=== PATIENT | female | born 1995 | race Caucasian/White ===

== ENCOUNTER → 2023-02-27 | Outpatient (CLI) | payer OTHER, SELFPAY ==
[2023-02-27 12:49] LABS: Absolute Lymphocyte Count 1.95 X10^3/uL (0.83-4.51); Absolute Neutrophil Count 4.8 X10^3/uL (2.0-7.7); Basophil# 0.01 X10^3/uL; Basophil% 0.1 % (0-1); Eosinophil# 0.13 X10^3/uL; Eosinophils% 1.8 % (0-5); Hematocrit 39.6 % (37-47); Hemoglobin 13.4 g/dL (12.0-15.0); Lymphocyte # 1.95 X10^3/ul (0.83-4.51); Lymphocyte % 26.7 % (19-41); Mean Corp Hgb Conc 33.8 g/dL (32-36); Mean Corpuscular Hgb 29.1 pg (27.0-32.0); Mean Corpuscular Volume 86.1 fL (81-99); Monocyte# 0.44 X10^3/uL; NRBC Flagged by Analyzer 0 % (0-5); Neutrophil # 4.75 X10^3/uL (2.7-7.7); Neutrophil % 65.1 % (47-70); Platelet Count 265 K/mm3 (150-450); RBC Distribution Width CV 12.6 % (11.6-14.6); RBC Distribution Width SD 39.2 fl (35.1-43.9); White Blood Count 7.3 K/mm3 (4.4-11.0)
[2023-02-27 13:20] LABS: Anion Gap 11 (5-15); BUN 7 mg/dL (7-18); Calcium,Total 8.8 mg/dL (8.5-10.1); Chloride 105 mmol/L (98-107); Creatinine, Serum 0.54 mg/dL (0.55-1.02); EST Glomerular Filtration Rate 144 mL/min (>60); Est Glom Filt Rate - Afr Amer 174 mL/min (>60); Glucose 81 mg/dL (74-106); Potassium 3.7 mmol/L (3.5-5.1); Sodium Level 139 mmol/L (136-145)
[2023-02-27 13:53] LABS: HIV - WCH Non-Reactive (Nonreactive); Hepatitis B Surface Antigen Non-Reactive (Nonreactive); Hepatitis C Antibody Non-Reactive (Nonreactive); Rubella IgG Reactive (Nonreactive); Syphilis Antibodies Non-reactive
[2023-03-02 06:08] LABS: Chlamydia By Nucleic Acid AMP Negative (Negative); Gonococcus By Nucleic Acid AMP Negative (Negative)
== END | disposition home or self-care (01) ==
PROVIDERS: Visit Provider Registered Nurse
DX: Z34.90 Encounter for supervision of normal pregnancy, unspecified, unspecified trimester (principal); Z3A.00 Weeks of gestation of pregnancy not specified
CPT/HCPCS: 36415; 80048; 85025; 86703; 86762; 86780; 86803; 86850; 86900; 86901; 87086; 87340; 87491; 87591

== ENCOUNTER → 2023-05-23 | Outpatient (CLI) | payer BC, SELFPAY ==
[2023-05-23 14:10] LABS: Absolute Lymphocyte Count 1.78 X10^3/uL (0.83-4.51); Absolute Neutrophil Count 8.4 X10^3/uL (2.0-7.7); Basophil# 0.01 X10^3/uL; Basophil% 0.1 % (0-1); Eosinophil# 0.17 X10^3/uL; Eosinophils% 1.6 % (0-5); Lymphocyte # 1.78 X10^3/ul (0.83-4.51); Lymphocyte % 16.6 % (19-41); Mean Corp Hgb Conc 33.3 g/dL (32-36); Mean Corpuscular Hgb 28.5 pg (27.0-32.0); Mean Corpuscular Volume 85.4 fL (81-99); Mean Platelet Vol. 10.7 fl (6.2-12.0); Monocyte# 0.35 X10^3/uL; Monocyte% 3.3 % (0-10); NRBC Flagged by Analyzer 0 % (0-5); Neutrophil # 8.39 X10^3/uL (2.7-7.7); Platelet Count 271 K/mm3 (150-450); RBC Distribution Width CV 13.1 % (11.6-14.6); RBC Distribution Width SD 40.1 fl (35.1-43.9); Red Blood Count 3.16 M/mm3 (4.2-5.4); White Blood Count 10.7 K/mm3 (4.4-11.0)
[2023-05-23 14:34] LABS: Prothrombin Time (Protime)PT. 13.3 SECONDS (11.7-14.9)
[2023-05-23 14:35] LABS: Fibrinogen 469 mg/dl (203-444)
[2023-05-23 19:18] LABS: Absolute Lymphocyte Count 2.13 X10^3/uL (0.83-4.51); Basophil# 0.02 X10^3/uL; Basophil% 0.2 % (0-1); Eosinophil# 0.19 X10^3/uL; Eosinophils% 1.7 % (0-5); Hematocrit 29.8 % (37-47); Hemoglobin 9.5 g/dL (12.0-15.0); Lymphocyte # 2.13 X10^3/ul (0.83-4.51); Lymphocyte % 19.5 % (19-41); Mean Corp Hgb Conc 31.9 g/dL (32-36); Mean Corpuscular Volume 87.9 fL (81-99); Mean Platelet Vol. 10.5 fl (6.2-12.0); Monocyte# 0.48 X10^3/uL; Monocyte% 4.4 % (0-10); NRBC Flagged by Analyzer 0 % (0-5); Neutrophil # 8.04 X10^3/uL (2.7-7.7); Neutrophil % 73.8 % (47-70); Platelet Count 274 K/mm3 (150-450); RBC Distribution Width CV 13.1 % (11.6-14.6); RBC Distribution Width SD 41.5 fl (35.1-43.9); Red Blood Count 3.39 M/mm3 (4.2-5.4); White Blood Count 10.9 K/mm3 (4.4-11.0)
--- OUTSIDE RECORDS SUMMARY | 2023-05-23 21:06 | XMS RPT_ITS | CCD ---
Author Name Unknown Address [address] [place] [address] Organization [facility] Care Team Providers Care Die Setter Name Role Phone Unavailable Primary Care Provider Vianey Denney, Physician Primary Care Provider UnavailGIUSEPPE Cook Attending Unavailable GIUSEPPE HAIR Referring Unavailable GIUSEPPE HAIR Admitting Unavailable GIUSEPPE HAIR Attending Unavailable ANY, PHYSICIAN Primary Care Unavailable GIUSEPPE HAIR Attending Unavailable Unavailable Primary Care Provider WERO Decker Referring Unavailable WERO SOLIS Attending Unavailable Allergies Allergy Classification Reported Allergen(s) Allergy Type Date of Onset Reaction(s) Facility (5 sources) Kiwi; Translations: [KIWI] Propensity to adverse reactions to drug 06-15-2022 Anaphylaxis [facility] Medications Current Medications Medication Drug Class(es) Dates Sig (Normalized) Sig (Original) drospirenone / Ethinyl Estradiol (3 sources) Progestin, Estrogen Start: 06-21-2022 End: 09-21-2022 take 1 tablet by mouth once daily, then take 3 tablets by mouth once drospirenone-ethiny l estradioL (TATA) 3-0.03 mg per tablet Indications: Encounter for initial prescription of contraceptive pills Take 1 (one) tablet by mouth daily . 90 tablet 3 06/21/2022 09/21/2022 Discontinued Problems Active Problems Problem Classification Problem Date Documented Da te Episodic/Chronic Hemorrhage during ; abruptio placenta; placenta previa (6 sources) Threatened miscarriage; Translations: [Threatened ] Onset: 03-03-2023 03-03-2023 Episodic Menstrual disorders (3 sources) Menometrorrhagia; Translations: [Excessive and frequent menstruation with irregular cycle] Onset: 09-20-2022 09-20-2022 Chronic Other female genital disorders (1 source) Abnormal uterine bleeding; Translations: [Abnormal uterine and vaginal bleeding, unspecified] 06-15-2022 Chronic Other female genital disorders (2 sources) Abnormal uterine and vaginal bleeding, unspecified; Translations: [Abnormal uterine and vaginal bleeding, unspecified] Onset: 06-19-2022 Chronic Past or Other Problems Problem Classification Problem Date Documented Date Episodic/Chronic Contraceptive and procreative management (4 sources) Patient encounter status; Translations: [Encounter for initial prescription of contraceptive pills] Onset: 06-21-2022 06-21-2022 Episodic Other screening for suspected conditions (not mental disorders or infectious disease) (4 sources) Cancer cervix screening status; Translations: [Encounter for screening for malignant neoplasm of cervix] Onset: 06-21-2022 06-21-2022 Episodic Results Test Name Value Interpretation Reference Range Facil ity Vital Signs Date Time Vital Sign Value Performing Clinician Facility 03-03-2023 19:13-0500 Diastolic blood pressure 84 mm[Hg] [facility] 03-03-2023 19:13-0500 Heart rate 80 /[facility]-03-2023 19:13-0500 Respiratory rate 16 /[facility] 03-03-2023 19:13-0500 SaO2% (BldA) [Mass fraction] 98 % [facility] 03-03-2023 19:13-0500 Systolic blood pressure 135 mm[Hg] [facility] 03-03-2023 15:38-0500 Body weight 99.[address] [facility] 03-03-2023 15:37-0500 Body temperature 99.3 [facility]degF[facility] 09-20-2022 14:25-0400 Body height 172.7 cm Giuseppe Hair CNP Work Phone: [facility] 09-20-2022 14:25-0400 Body mass index (BMI) [Ratio] 33.3 kg/m2 Giuseppe Hair CNP Work Phone: [facility] 09-20-2022 14:25-0400 Body weight 99.34 kg Giuseppe aHir CNP Work Phone: [facility] 09-20-2022 14:25-0400 Diastolic blood pressure 76 mm[Hg] Giuseppe Hair CNP Work Phone: [facility] 09-20-2022 14:25-0400 Heart rate 84 /min Giuseppe Sprang DEVELOPMENT ARCHITECT Work Phone: [facility] 09-20-2022 14:25-0400 Systolic blood pressure 115 mm[Hg] Giuseppe Sprang DEVELOPMENT ARCHITECT Work Phone: [facility] 06-21-2022 14:36-0400 Body height 172.7 cm Giuseppe Sprang DEVELOPMENT ARCHITECT Work Phone: [facility] 06-21-2022 14:36-0400 Body mass index (BMI) [Ratio] 33.6 kg/m2 Giuseppe Sprang DEVELOPMENT ARCHITECT Work Phone: [facility] 06-21-2022 14:36-0400 Body weight 100.25 kg Giuseppe Sprang DEVELOPMENT ARCHITECT Work Phone: [facility] 06-21-2022 14:36-0400 Diastolic blood pressure 81 mm[Hg] Giuseppe Sprang DEVELOPMENT ARCHITECT Work Phone: [facility] 06-21-2022 14:36-0400 Heart rate 88 /min Giuseppe Sprang DEVELOPMENT ARCHITECT Work Phone: [facility] 06-21-2022 14:36-0400 Systolic blood pressure 117 mm[Hg] Giuseppe Sprang DEVELOPMENT ARCHITECT Work Phone: [facility] 06-15-2022 08:43-0400 Body height 173 cm Giuseppe Sprang DEVELOPMENT ARCHITECT Work Phone: [facility] 06-15-2022 08:43-0400 Body mass index (BMI) [Ratio] 33.28 kg/m2 Giuseppe Sprang DEVELOPMENT ARCHITECT Work Phone: [facility] 06-15-2022 08:43-0400 Body weight 99.61 kg Giuseppe Sprang DEVELOPMENT ARCHITECT Work Phone: [facility] 06-15-2022 08:43-0400 Diastolic blood pressure 85 mm[Hg] Giuseppe Sprang DEVELOPMENT ARCHITECT Work Phone: [facility] 06-15-2022 08:43-0400 Heart rate 94 /min Giuseppe Sprang DEVELOPMENT ARCHITECT Work Phone: [facility] 06-15-2022 08:43-0400 Systolic blood pressure 130 mm[Hg] Giuseppe Chavezlinh PEDRAZA Work Phone: [facility] Encounters Encounter Date Encounter Type Care Provider Facility Start: 05-02-2023 End: 05-02-2023 ambulatory WERO [facility] Start: 03-03-2023 End: 03-03-2023 Emergency department patient visit [facility] Start: 03-03-2023 End: 03-03-2023 Emergency department patient visit [facility] Emergency Department Start: 09-20-2022 End: 09-20-2022 ambulatory PHYSICIAN NO [facility] Start: 09-20-2022 End: 09-20-2022 Office outpatient visit 15 minutes Giuseppelakeisha Merino Minh PEDRAZA Work Phone: [facility] Obstetrics and Gynecology Procedures Date Procedure Procedure Detail Performing Clinician Start: 03-03-2023 Blood typing serologic abo [facility] Gaxiola Work Phone: Start: 03-03-2023 Complete blood count with white cell differential, automated [facility] Gaxiola Work Phone: Start: 03-03-20[address] Gonad[address]in [address] ic quantitative [facility]-L[facility] Gaxiola Work Phone: Start: 03-03-2023 Us preg uterus real time w/image dcmtn transvag [facility] Work Phone: Start: 03-03-2023 Culture bacterial quanttative colony count urine [facility] Work Phone: Start: 03-03-2023 Urinalysis, reagent strip without microscopy [facility] Work Phone: Start: 06-21-2022 Microscopic observat ion [Identifier] in Cervix by Cyto stain Giuseppe Hair CNP Work Phone: Plan of Treatment Date Care Activity Detail Author Start: 06-21-2025 Screening for malignant neoplasm of cervix Pap Smear [facility] Start: 06-22-2023 History and physical examination, annual for health maintenance Wellness Visit [facility] Start: 03-21-2023 End: 03-21-2023 Patient encounter procedure 03/21/2023 1:00 PM EST Office Visit [facility] Obstetrics and Gynecology [address] [place], [place] [phone] Giuseppe Hair, DEVELOPMENT ARCHITECT [address] [place] [id number] [facility] Start: 11-09-2022 Influenza vaccination [facility] Start: 09-20-2022 End: 09-20-2022 Patient encounter procedure 09/20/2022 2:30 PM EDT Office Visit [facility] Obstetrics and Gynecology [address] [place] [phone] Giuseppe Hair, DEVELOPMENT ARCHITECT [address] [place] [id number] [facility] Start: 06-21-2022 End: 06-21-2022 Patient encounter procedure 06/21/2022 2:30 PM EDT Office Visit [facility] Obstetrics and Gynecology [address] [place] [phone] Giuseppe Hair, DEVELOPMENT ARCHITECT [address] [place] [id number] [facility] Start: 06-19-2022 End: 06-19-2022 Professional / ancillary services management 06/19/2022 2:30 PM EDT Ancillary Procedure [facility] [address] [place] [phone] Giuseppe Hair, DEVELOPMENT ARCHITECT [address] [place] [id number] [facility] Start: 12-07-2016 Screening for malignant neoplasm of cervix CERVICAL CANCER SCREENING DISCUSSION [facility] Start: 12-07-2014 Third diphtheria, tetanus and acellular pertussis (DTaP) vaccination TDAP (ADULT) [facility] Start: 12-07-2013 Hepatitis C screening Hepatitis C Screening [facility] Start: 12-07-2010 HIV screening [facility] Start: 2007 Depression screening using PHQ-9 (Patient Health Questionnaire 9) score Depression Screening (PHQ-2/9) [facility] Start: 12-07-1998 History and physical examination, annual for health maintenance Wellness Visit [facility] Start: 06-06-1996 COVID-19 Vaccine (#1) COVID-19 Vaccine (#1) [facility] Start: 1995 Hepatitis B vaccination HEP B VACCINE (1 of 3 - 3-dose series) [facility] Start: 1995 Hepatitis C screening HEPATITIS C VIRUS SCREENING [facility] Start: 1995 Screening for malignant neoplasm of cervix Pap Smear [facility] Start: 1995 Tetanus vaccination [facility] Bacteria identified in Urine by Culture URINE CULTURE Microbiology Routine 03/03/2023 4:06 PM EST [facility] End: 06-22-2023 Microscopic examination of vaginal Papanicolaou smear Thinprep Pap Smear Pathology and Cytology Routine Encounter for gynecological examination without abnormal finding Screening for malignant neoplasm of cervix 1 Occurrences starting 06/21/2022 until 06/22/2023 [facility] Work Phone: Payers Date Payer Category Payer Private Health Insurance [id number] 2022 Private Health Insurance [id number] 1995 Unknown [id number] [id number] 1995 Unknown [id number] [id number]. [id number] 1995 Unknown [id number] [id number]. [id number] 1995 Unknown [id number] [id number]. [id number] 1995 Unknown [id number] 1995 Unknown [id number] [id number]. [id number] Unknown [id number] Social History Date Type Detail Facility Start: 06-15-2022 End: 03-03-2023 Tobacco smoking status NHIS Never smoked tobacco [facility] Start: 06-15-2022 End: 03-03-2023 Tobacco use and exposure Smokeless tobacco non-user [facility] Start: 06-15-2022 End: 09-20-2022 Alcohol intake Current drinker of alcohol (finding) [facility] Start: 06-15-2022 End: 03-03-2023 History of Social function [facility] Start: 06-15-2022 End: 03-03-2023 Tobacco use panel [facility] Start: 06-15-2022 Alcohol Comment social [facility] Start: 1995 Sex Assigned At Not on file [facility] Start: 06-05-2022 End: 06-18-2022 Exposure to SARS-CoV-2 (event) Not sure [facility] Start: 03-03-2023 Alcohol intake Lifetime non-d skyler (finding) [facility] NEGATED: Highlighted rowStart: NINF History of tobacco use Passive smoker [facility] Clinical Notes 06-15-2022 to 03-03-2023 Discharge InstructionsAttachmentsSpGiuseppe arriaga CNP - 09/20/2022 2:36 PM EDTPattalice Hair CNP - 06/21/2022 2:52 PM EDTPattalice Hair CNP - 06/15/2022 8:40 AM EDT Note Date & Type Note Facility 03-03-2023 Note PROCEDURE: US OB TRANSVAGINAL/CERVICAL LENGTH, 03/03/2023 4:18 PM EST CLINICAL INDICATIONS: Vaginal bleeding in , first trimester 3 para 3 LMP 12/21/2022 Expected gestational age by LMP: 10 weeks 2 days Expected JANIE by LMP: 09/27/2023 COMPARISON: 06/19/2022 TECHNIQUE: Transvaginal first trimester obstetric sonogram, grayscale, color evaluation. FINDINGS: A single living intrauterine is identified. Intrauterine gestational sac, normal yolk sac, embryonic pole is seen. Cardiac activity is noted. Mean gestational sac size: 4.02 cm Embryonic crown-rump length: 3.0 cm Sonographic gestational age: 9 weeks 4 days +/- 5 days Sonographic JANIE: 10/02/2023 There are 2 complex areas of perigestational hemorrhage identified measuring up to; 4.0 x 1.8 x 1.1 cm. Superior to the gestational sac 4.6 x 1.6 x 2.6 cm superior to the gestational sac Maternal right ovary: 3.8 x 1.2 x 2.3 cm, volume 5 mL. Subcentimeter follicle seen, normal sonographic morphology. Maternal left ovary: 3.6 x 2.2 x 2.7 cm, volume 11 mL. A thick-walled 2.0 x 1.5 x 1.8 cm maternal left ovarian corpus luteal cyst is favored. IMPRESSION: 1. Single living intrauterine , 9 weeks 4 days +/- 5 days 2. Sonographic JANIE 10/02/2023 3. 2 areas of perigestational hemorrhage along the superior aspect of the gestational sac measuring up to 4.0 and 4.6 cm respectively. These are likely moderate in size. 4. Normal maternal right ovarian sonographic morphology 5. 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 [facility] 03-03-2023 Hospital Discharg e instructions Rachna Smith PA-C - 03/03/2023 6:35 PM EST Please contact your OB doctor as soon as possible to discuss this with them. Please return to the emergency room immediately if you feel that your pain or bleeding is getting worse or you are feeling lightheaded dizzy or any other concerns The following attachments cannot be sent through Care Everywhere.: Vaginal Bleeding ([place])Miscarriage: Threatened ([place] Citizen)documented in this encounter [facility] 03-03-2023 Note PROCEDURE: US OB TRANSVAGINAL/CERVICAL LENGTH, 03/03/2023 4:18 PM EST CLINICAL INDICATIONS: Vaginal bleeding in , first trimester 3 para 3 LMP 12/21/2022 Expected gestational age by LMP: 10 weeks 2 days Expected JANIE by LMP: 09/27/2023 COMPARISON: 06/19/2022 TECHNIQUE: Transvaginal first trimester obstetric sonogram, grayscale, color evaluation. FINDINGS: A single living intrauterine is identified. Intrauterine gestational sac, normal yolk sac, embryonic pole is seen. Cardiac activity is noted. Mean gestational sac size: 4.02 cm Embryonic crown-rump length: 3.0 cm Sonographic gestational age: 9 weeks 4 days +/- 5 days Sonographic JANIE: 10/02/2023 There are 2 complex areas of perigestational hemorrhage identified measuring up to; 4.0 x 1.8 x 1.1 cm. Superior to the gestational sac 4.6 x 1.6 x 2.6 cm superior to the gestational sac Maternal right ovary: 3.8 x 1.2 x 2.3 cm, volume 5 mL. Subcentimeter follicle seen, normal sonographic morphology. Maternal left ovary: 3.6 x 2.2 x 2.7 cm, volume 11 mL. A thick-walled 2.0 x 1.5 x 1.8 cm maternal left ovarian corpus luteal cyst is favored. RADIOLOGY 09-20-2022 History of Presen t illness Narrative Subjective Patient ID: Anny Hess is a 26 y.o. female. Chief Complaint Patient presents with Contraception 3 month f/u OCP, pt states she decided to not take control and doesn't want to be on any hormonal BC, does c/o heavy periods and would like to discuss a natural way to help the heavy bleeding HPI HPI Presents for follow up to menorrhagia and irregular menses Report after last visit 06/2022 she stopped aygestin daily pills and decided not to start progestin only BCP's She is using natural family planning and desires to not take any hormonal contraception currently Since off progestin her menses have returned and are heavy and irregular over last 3 months Menstrual cycles closer together 15-21 days apart with heavy flow on days 2 and 3 with cramping and nausea Flow last 5-7 days. On heaviest days soaks pads every 2 hrs WINDOW/DISTRIBUTION CLERK HX Hx of heavy and prolonged vaginal bleeding after her last vaginal delivery that was managed on aygestin 5 mg daily. She is with D&C hysteroscopy after last delivery 2021 for heavy vaginal bleeding Reports no abnormal finding on D&C hysteroscopy and that she was placed on aygestin 5 mg daily to control her heavy vaginal bleeding Reports she had taken these pills daily x 12 months She has been on traditional [place] progestin pills for BC in past between pregnancies She reports HX of regular menses since menarche with no excessive heavy flow or no HX of severe dysmenorrhea She has no pelvic pain or dyspareunia She has no HX acne, hirsutism or excessive wt gain She is healthy non smoker with no HX of migraines, DVT, hypertension or thyroid disease She has HX normal pap tests and last pap 2019 in [place] She is exercising most days a [employer] both strength training and aerobic She does desire possible future and would like stay off Hormonal BC The following portions of the patient's history were reviewed and updated as appropriate: allergies, current medications, past family history, past medical history, past social history, past surgical history, and problem list. Review of Systems Constitutional: Negative for chills, fatigue and fever. Eyes: Negative for visual disturbance. Respiratory: Negative for cough and shortness of breath. Cardiovascular: Negative for chest pain, palpitations and leg swelling. Gastrointestinal: Negative for abdominal pain, constipation, diarrhea, nausea and vomiting. Endocrine: Negative for cold intolerance and heat intolerance. Genitourinary: Positive for menstrual problem (closer together and heavy over last 3 months). Negative for dyspareunia, pelvic pain, vaginal bleeding, vaginal discharge and vaginal pain. Musculoskeletal: Negative for back pain. Skin: Negative for pallor and rash. Neurological: Negative for seizures, syncope, weakness and headaches. Psychiatric/Behavioral: Negative for dysphoric mood. The patient is not nervous/anxious. Objective BP 115/76 Pulse 84 Ht 5' 8 Wt 99.3 kg (219 lb) LMP 09/01/2022 BMI 33.30 kg/m Patient's last menstrual period was 09/01/2022. Physical Exam Constitutional: Appearance: Normal appearance. Cardiovascular: Rate and Rhythm: Normal rate and regular rhythm. Pulmonary: Effort: Pulmonary effort is normal. Breath sounds: Normal breath sounds. Skin: General: Skin is warm and dry. Coloration: Skin is not pale. Findings: No rash. Neurological: Mental Status: She is alert and oriented to person, place, and time. Psychiatric: Mood and Affect: Mood normal. Behavior: Behavior normal. Assessment/Plan: Anny was seen today for contraception. Diagnoses and all orders for this visit: Menorrhagia with irregular cycle Reviewed management options for heavy menstrual bleeding including hormonal and non-hormonal options such as Progestin IUD, hormonal control, progestin therapy, tranexamic acid, endometrial ablation therapy and NSAIDS. She desires future and declined hormonal BC currently She would like to try progesterone addition to see if this slow menses Desires to try lower dose compounded progesterone cream and RX provided for Progesterone cream 50 mg days 7- menses to use x 3 months and evaluate Advised to add MV with iron and increase iron rich foods RTO 6 months follow up Giuseppe Hair CNP documented in this encounter [facility] 06-21-2022 History of Presen t illness Narrative Well Women Exam Patient Name: Anny Hess : 1995 MR #: [id number] SUBJECTIVE: Anny Hess is a 26 y.o. here for Well Women's exam today. Chief Complaint Patient presents with Abnormal Uterine Bleeding U/S results HPI Present for Well women exam and pelvic US results for evaluation of abnormal uterine bleeding At her last visit 06/15/22 Reported a Hx of heavy and prolonged vaginal bleeding after her last vaginal delivery that was managed on aygestin 5 mg daily. She is with D&C hysteroscopy after last delivery 2021 for heavy vaginal bleeding Reports no abnormal finding on D&C hysteroscopy and that she was placed on aygestin 5 mg daily to control her heavy vaginal bleeding Reports she has taken these pills daily x 12 months for both contraception and management of her bleeding Tolerating this pill well with no depression ,excessive wt gain or bloating She has noticed decrease in libido since taking aygestin Reports no menses or bleeding on this aygestin Prior to this post episode of bleeding she has had no HX of heavy or prolonged or abnormal menses She has been on traditional [place] progestin pills for BC in past between pregnancies She reports HX of regular menses since menarche with no excessive heavy flow or no HX of severe dysmenorrhea She has no pelvic pain or dyspareunia She has no HX acne, hirsutism or excessive wt gain She is healthy non smoker with no HX of migraines, DVT, hypertension or thyroid disease She has HX normal pap tests and last pap 2019 in [place] She is exercising most days a [employer] both strength training and aerobic She does desire possible future and would like to continue on reversible Hormonal BC option She is currently using contraception. She uses oral progesterone-only contraceptive. She is currently sexually active./ no STI risks PAST MEDICAL HISTORY: Past MECHANIC History Obstetrical History: Gynecologic History: Menstrual history: Patient's last menstrual period was 06/16/2022. Denies a history of abnormal cervical cytology Past Medical History History reviewed. No pertinent past medical history. Past Surgical History has a past surgical history that includes section, low transverse; Appendectomy; and Hysteroscopy. Family History Her family history includes No Known Problems in her father and mother. Medications She has a current medication list which includes the following prescription(s): norethindrone. Allergies She is allergic to kiwi. Social History She reports that she has never smoked. She has never been exposed to tobacco smoke. She has never used smokeless tobacco. She reports current alcohol use. She reports that she does not use drugs. Review of Systems Review of Systems Constitutional: Negative for appetite change, chills, fatigue, fever and unexpected weight change. HENT: Negative for congestion, sinus pain and sore throat. Eyes: Negative for visual disturbance. Respiratory: Negative for cough, shortness of breath and wheezing. Cardiovascular: Negative for chest pain, palpitations and leg swelling. Gastrointestinal: Negative for abdominal pain, constipation, diarrhea, nausea and vomiting. Endocrine: Negative for cold intolerance and heat intolerance. Genitourinary: Positive for menstrual problem (no menses on aygestin pills). Negative for difficulty urinating, dyspareunia, dysuria, flank pain, frequency, genital sores, hematuria, pelvic pain, urgency, vaginal bleeding, vaginal discharge and vaginal pain. Musculoskeletal: Negative for arthralgias and joint swelling. Skin: Negative for color change and rash. Neurological: Negative for dizziness, syncope, numbness and headaches. Hematological: Does not bruise/bleed easily. Psychiatric/Behavioral: Negative for dysphoric mood and sleep disturbance. The patient is not nervous/anxious. OBJECTIVE: Pelvic/TV US results from 06/19/22 : normal Transvaginal WINDOW/DISTRIBUTION CLERK ultrasound for abnormal uterine bleeding The uterus is 7.86 cm in length and is of normal architecture. The endometrial stripe is at 0.78 cm. The left ovary is 3.17 cm in diameter with 3 small follicles The right ovary is 3.21 cm in diameter with 5 small follicles There is no free fluid Impression: Normal WINDOW/DISTRIBUTION CLERK ultrasound Vitals: 06/21/22 1436 BP: 117/81 Pulse: 88 Weight: 100.2 kg (221 lb) Height: 5' 8 Body mass index is 33.6 kg/m . Physical Examination: Physical Exam Constitutional: Appearance: Normal appearance. HENT: Head: Normocephalic. Neck: Thyroid: No thyroid mass or thyromegaly. Cardiovascular: Rate and Rhythm: Normal rate and regular rhythm. Pulmonary: Effort: Pulmonary effort is normal. Breath sounds: Normal breath sounds. Chest: Chest wall: No mass. Breasts: Right: Normal. No swelling, bleeding, mass, nipple discharge, skin change or tenderness. Left: Normal. No swelling, bleeding, mass, nipple discharge, skin change or tenderness. Abdominal: Palpations: Abdomen is soft. There is no mass. Tenderness: There is no abdominal tenderness. Genitourinary: Labia: Right: No rash, tenderness or lesion. Left: No rash, tenderness or lesion. Urethra: No urethral swelling. Vagina: No vaginal discharge, erythema, tenderness or bleeding. Cervix: Normal. Uterus: Normal. Not enlarged and not tender. Adnexa: Right: No mass, tenderness or fullness. Left: No mass, tenderness or fullness. Lymphadenopathy: Cervical: No cervical adenopathy. Upper Body: Right upper body: No supraclavicular, axillary or pectoral adenopathy. Left upper body: No supraclavicular, axillary or pectoral adenopathy. Lower Body: No right inguinal adenopathy. No left inguinal adenopathy. Skin: Findings: No rash. Neurological: Mental Status: She is alert. ASSESSMENT/PLAN: Anny Hess 26 y.o. 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 Well Women Exam - Pap smear without cotesting, - Reviewed diet and exercise recommendations reviewed for bone health - Discussed recommendations on breast self-awareness Hereditary cancer genetic testing was not recommended. HX AUB Reviewed pelvic/TV US showing normal results with no ovarian or uterine masses or abnormalities Contraceptive counseling .Reviewed R/B/SE and effectiveness of hormonal and non hormonal options . Discussed LARC options. Desires to continue with oral contraceptive pills and will change to lower dose combination pills now and evaluate bleeding profile RTO 3 months follow up to BCP's - RTO 12 months for routine WINDOW/DISTRIBUTION CLERK exam or sooner as needed Giuseppe Hair CNP documented in this encounter [facility] 06-15-2022 History of Presen t illness Narrative Subjective Patient ID: Anny Hess is a 26 y.o. female. Chief Complaint Patient presents with Establish Care Patient is here to establish care. . Hx D&C after last c/section in 2021 due to heavy bleeding. LMP unknown due to pills. Last pap unknown exact date. Previous OBGYN in [place]. HPI HPI Present for evaluation of abnormal uterine bleeding Just moved to [place] from [place] recently Reports Hx of heavy and prolonged vaginal bleeding after last delivery managed on aygestin 5 mg daily. She is with D&C hysteroscopy after last delivery 2021 for heavy vaginal bleeding Reports no abnormal finding on D&C hysteroscopy and that she was placed on aygestin 5 mg daily to control her heavy vaginal bleeding Reports she has taken these pills daily x 12 months for both contraception and management of her bleeding Tolerating this pill well with no depression ,excessive wt gain or bloating She has noticed decrease in libido since taking aygestin Reports no menses or bleeding on this aygestin Prior to this post episode of bleeding she has had no HX of heavy or prolonged or abnormal menses She has been on traditional [place] progestin pills for BC in past between pregnancies She reports HX of regular menses since menarche with no excessive heavy flow or no HX of severe dysmenorrhea She has no pelvic pain or dyspareunia She has no HX acne, hirsutism or excessive wt gain She is healthy non smoker with no HX of migraines, DVT, hypertension or thyroid disease She is with no STI risks She has HX normal pap tests and last pap 2018 in [place] She is exercising most days a [employer] both strength training and aerobic She does desire possible future and would like to continue on reversible Hormonal BC option The following portions of the patient's history were reviewed and updated as appropriate: allergies, current medications, past family history, past medical history, past social history, past surgical history, and problem list. Review of Systems Constitutional: Negative for appetite change, chills, fatigue, fever and unexpected weight change. HENT: Negative for congestion, sinus pain and sore throat. Eyes: Negative for visual disturbance. Respiratory: Negative for cough, shortness of breath and wheezing. Cardiovascular: Negative for chest pain, palpitations and leg swelling. Gastrointestinal: Negative for abdominal pain, constipation, diarrhea, nausea and vomiting. Endocrine: Negative for cold intolerance and heat intolerance. Genitourinary: Positive for menstrual problem (no menes on aygestin currently / See HPI). Negative for difficulty urinating, dyspareunia, dysuria, flank pain, frequency, genital sores, hematuria, pelvic pain, urgency, vaginal bleeding, vaginal discharge and vaginal pain. Musculoskeletal: Negative for arthralgias and joint swelling. Skin: Negative for color change and rash. Neurological: Negative for dizziness, syncope, numbness and headaches. Hematological: Does not bruise/bleed easily. Psychiatric/Behavioral: Negative for dysphoric mood and sleep disturbance. The patient is not nervous/anxious. Objective BP 130/85 Pulse 94 Ht 5' 8.11 Wt 99.6 kg (219 lb 9.6 oz) LMP (LMP Unknown) BMI 33.28 kg/m No LMP recorded (lmp unknown). Physical Exam Constitutional: Appearance: Normal appearance. Skin: General: Skin is warm and dry. Coloration: Skin is not pale. Findings: No bruising, lesion or rash. Neurological: Mental Status: She is alert and oriented to person, place, and time. Psychiatric: Mood and Affect: Mood normal. Behavior: Behavior normal. Assessment/Plan: Discussed common causes of AUB including post hemorrhage, , structural abnormalities such as fibroids /polyps or anovulation conditions Advised pelvic/TV US for further evaluation Advised overall goal would be to stop higher dose aygestin pills and try lower dose hormonal control for contraception and cycle regulation Advised to RTO for US and pap/well women exam Will discuss stopping aygestin and starting a combined BCP or progestin pill if US showing no abnormalities Patient agrees to plan of care and will RTO as scheduled Problem List Items Addressed This Visit None Visit Diagnoses Abnormal uterine bleeding (AUB) - Primary Relevant Orders US Pelvic Transabdominal and Transvaginal Giuseppe Hair CNP documented [facility] Diagnosis Encounter for gynecological examination without abnormal finding- Primary Screening for malignant neoplasm of cervix Screening for malignant neoplasm of the cervix Encounter for initial prescription of contraceptive pills [facility] Diagnosis Menorrhagia with irregular cycle- Primary [facility] Diagnosis Threatened miscarriage- Primary Threatened , unspecified as to episode of care Vaginal bleeding in , first trimester [facility] Attachments The following attachments cannot be sent through Care Everywhere. * Cervical Cancer Screening: General Info ([place]) * Control Pills: Combination ([place]) [facility] Attachments The following attachments cannot be sent through Care Everywhere. * AUB (Abnormal Uterine Bleeding) ([place]) [facility] Reason for Referral Specialty Diagnoses / Procedures Referred By Jamel sandhu Referred To Contact Obstetrics and Gynecology Diagnoses Abnormal uterine bleeding (AUB) Procedures US Pelvic Transabdominal and Transvaginal Giuseppe Hair, DEVELOPMENT ARCHITECT [address] [place] [address] Referral ID Status Reason Start Date Expiration Date V isits Requested Visits Authorized [id number] Authorized 06/15/2022 06/15/2023 1 1 Specialty Diagnoses / Procedures Referred By Jamel sandhu Referred To Contact Procedures US OB TRANSVAGINAL/CERVICAL LENGTH Rachna Smith PA-C [address] [place] [address] Referral ID Status Reason Start Date Expiration Date V isits Requested Visits Authorized [id number] New Request 03/03/2023 03/27/2024 1 1 Summary Purpose Family History No Family History Records FoundNo Family History Records FoundNo Family History Records Found Advance Directives No Advanced Directives Records FoundNo Advanced Directives Records FoundNo Advanced Directives Records Found Additional Source Comments Reason for Visit (unrecogniz ed section and content) Reason Comments Abnormal Uterine Bleeding U/S results Well Woman No pap on file Reason Comments Contraception 3 month f/u OCP, pt states she decided to not take control and doesn't want to be on any hormonal BC, does c/o heavy periods and would like to discuss a natural way to help the heavy bleeding Reason Comments Vaginal Bleeding Patient reports tory guerra 10 weeks and vaginal bleeding that started a hour ago Care Teams (unrecognized sec tion and content) INFORMATION SOURCE (unrecogn ized section and content) DATE CREATED AUTHOR AUTHOR'S ALEXANDRA ATION 03/06/2023 [facility] DATE CREATED AUTHOR AUTHOR'S ALEXANDRA ATION 05/09/2023 [facility] FOR RECORDS PERTAINING TO PATIENTS WHO ARE OR HAVE BEEN ENROLLED IN A CHEMICAL DEPENDENCY/SUBSTANCEABUSE PROGRAM, SOME INFORMATION MAY BE OMITTED. This clinical summary was aggregated from multiple sources. Caution should be exercised in using it in the provision of clinical care. This summary normalizes information from multiple sources, and as a consequence, information in this document may materially change the coding, format and clinical context of patient data. In addition, data may be omitted in some cases. CLINICAL DECISIONS SHOULD BE BASED ON THE PRIMARY CLINICAL RECORDS. [facility] provides no warranty or guarantee of the accuracy or completeness of information in this document.
== END | disposition home or self-care (01) ==
LOC: PAVLAB 13:37 → LAB 13:38
PROVIDERS: Obstetrics & Gynecology; Referring Provider Nurse Practitioner Women's Health; Visit Provider Nurse Practitioner Women's Health
DX: O46.90 Antepartum hemorrhage, unspecified, unspecified trimester (principal); Z3A.00 Weeks of gestation of pregnancy not specified
CPT/HCPCS: 36415; 85025; 85384; 85610